=== PATIENT | female | born 1990 | race Caucasian/White ===

== ENCOUNTER 2021-01-12 05:45 | Inpatient (IN) ==
[2021-01-12] MEDS: ceFOXitin 2 GM IVPREMIX 2 GM/50 ML BAG ONE (06:55)
[2021-01-12] MEDS ORDERED: Oxytocin 10 UNITS/ML 1 ML VIAL ONE (07:47)
[2021-01-12] MEDS ORDERED: Morphine PF AMP (0.5MG/ML) 5 MG/10 ML AMP ONE (07:48)
[2021-01-12] MEDS ORDERED: fentaNYL 100 mcg/2 ml 50 MCG/ML VIAL ONE (07:48)
[2021-01-12] MEDS: ceFOXitin 2 GM PREMIX 50 ML IVPB ONE (07:58)
[2021-01-12] MEDS ORDERED: Prochlorperazine 5 mg/ml 2 ml VIAL (10 mg) ONE (08:58)
[2021-01-12] MEDS ORDERED: Naloxone 0.4 mg VIAL 0.4 mg/ml 1 ml VIAL IV PRN ×2 (09:10→09:12)
[2021-01-12] MEDS ORDERED: fentaNYL 100 mcg/2 ml 50 MCG/ML VIAL IV PRN ×2 (09:10→13:03)
[2021-01-12] MEDS ORDERED: Ondansetron 4 mg VIAL 2 MG/ML 2 ml VIAL IV PRN ×2 (09:10→13:03)
[2021-01-12] MEDS ORDERED: oxyCODONE/Acetamin 5/325 mg TAB PO PRN ×2 (09:10→13:03)
[2021-01-12] MEDS ORDERED: Ondansetron 4 mg VIAL 2 MG/ML 2 ml VIAL ONE (09:41)
[2021-01-12] MEDS: Oxytocin in LR 20 UNITS/1,000 ML BAG IVPB ONE (09:51)
[2021-01-12 11:11] LABS: Urine Appearance Clear; Urine Bilirubin Negative (Negative); Urine Blood Negative (Negative); Urine Color Straw; Urine Glucose Negative (Negative); Urine Ketones Negative (Negative); Urine Nitrite Negative (Negative); Urine Protein Negative (Negative); Urine Specific Gravity 1.004 (1.002-1.030); Urine Urobilinogen Negative (Negative)
[2021-01-12] MEDS ORDERED: Dibucaine 1% OINT 28.35 GM TUBE PR PRN (12:09)
[2021-01-12] MEDS ORDERED: Glycerin ADULT 2.4 gm SUPP PR PRN (12:09)
[2021-01-12] MEDS ORDERED: Witch Hazel PAD JAR TOPICAL PRN (12:09)
[2021-01-12] MEDS: Oxytocin in LR 20 UNITS/1,000 ML BAG IVPB SCH (12:46)
[2021-01-12] MEDS ORDERED: Lactated Ringers 1000 ml BAG 1,000 ML IV SCH (13:00)
[2021-01-12 21:07] LABS: Urine Benzodiazepine Screen None Detected (None Detect); Urine Opiates Screen None Detected (None Detect)
[2021-01-13 06:27] LABS: ABS Eosinophils 0.1 10^3/ul (0-0.6); ABS Lymphocytes 1.7 10^3/ul (1.0-4.8); ABS Monocytes 0.9 10^3/ul (0-0.8); Eosinophil % 0.9 %; Hematocrit 26 % (35-47); Hemoglobin 9.2 g/dL (12.0-16.0); Lymphocyte % 15.6 %; Mean Corpuscular Hemoglobin 33 pg (27-31); Mean Corpuscular Hgb Conc 36 g/dL (31-36); Mean Corpuscular Volume 92 fL (80-97); Mean Platelet Volume 7.3 fL (7.4-10.4); Platelet Count 206 10^3/uL (150-450); Red Blood Count 2.82 10^6 /uL (3.70-4.87); Red Cell Distribution Width 13 % (10-15); White Blood Count 10.8 10^3/uL (3.5-10.8)
[2021-01-15 07:55] VITALS: BP 120/73
== END 2021-01-15 13:55 | disposition home or self-care (01) ==
LOC: MCHOB 05:45
PROVIDERS: ADMIT Obstetrics & Gynecology; ATTEND Obstetrics & Gynecology